=== PATIENT | female | born 1940 | race Asian ===

== ENCOUNTER 2019-09-17 17:35 | Emergency (ER) | payer OTHER ==
[~2019-09-17] VITALS: Ht 154.9 cm; Wt 62.1 kg
[2019-09-17 17:46] VITALS: Ht 154.9 cm; Wt 62.1 kg
[2019-09-17 18:58] VITALS: BP 170/60
== END 2019-09-17 18:58 | disposition home or self-care (01) ==
LOC: ED 17:35
DX: S61.211A Laceration without foreign body of left index finger without damage to nail, initial encounter (principal); S46.912A Strain of unspecified muscle, fascia and tendon at shoulder and upper arm level, left arm, initial encounter; S29.011A Strain of muscle and tendon of front wall of thorax, initial encounter; I10 Essential (primary) hypertension; E11.9 Type 2 diabetes mellitus without complications; E78.00 Pure hypercholesterolemia, unspecified; Z98.890 Other specified postprocedural states; V48.1XXA Car passenger injured in noncollision transport accident in nontraffic accident, initial encounter; Y93.89 Activity, other specified; Y92.488 Other paved roadways as the place of occurrence of the external cause; Y99.8 Other external cause status